=== PATIENT | female | born 1970 | race American Indian/Alaskan Native ===

== ENCOUNTER 2016-09-17 05:25 | Emergency (ER) | payer SELFPAY ==
[2016-09-17 06:47] VITALS: BP 171/111
[2016-09-17 07:13] LABS: Basophils % (Auto) 0.5 % (0.0-1.8); Eosinophils % (Auto) 1.7 % (0.0-4.3); Hematocrit 40.5 % (30.3-42.9); Hemoglobin 13.3 gm/dl (10.1-14.3); Mean Corpuscular HGB Conc 33 % (30-34); Mean Corpuscular Hemoglobin 28 pg (28-32); Mean Corpuscular Volume 84 fl (79-97); Platelet Count 279 K/mm3 (140-440); Red Blood Count 4.85 M/mm3 (3.65-5.03); Red Cell Distribution Width 14.2 % (13.2-15.2); White Blood Count 8.5 K/mm3 (4.5-11.0)
[2016-09-17 07:30] LABS: Alanine Aminotransferase 46 units/L (7-56); Alkaline Phosphatase 141 units/L (35-129); Anion Gap 19 mmol/L; Blood Urea Nitrogen 10 mg/dL (7-17); Calcium 9.2 mg/dL (8.4-10.2); Carbon Dioxide 26 mmol/L (22-30); Chloride 95.9 mmol/L (98-107); Glucose 324 mg/dL (65-100); Lipase 27 units/L (13-60); Sodium 137 mmol/L (137-145); Total Protein 8.1 g/dL (6.3-8.2)
[2016-09-17 08:09] LABS: Bacteria,Urine 2+ /HPF (Negative); Bilirubin,Urine NEG (Negative); Blood,Urine NEG (Negative); Ketones,Urine TR mg/dL (Negative); Leukocyte Esterase,Urine SM (Negative); Mucus,Urine FEW /HPF; Nitrite,Urine NEG (Negative)
[2016-09-17] MEDS ORDERED: NACL ONE (12:05)
--- NOTE | 2016-09-21 17:35 | ED Elopement Review ---
ED Pt Elopement review - Results review Lab results: Laboratory Tests 09/17/16 09/17/16 09/17/16 06:57 06:57 07:04 WBC 8.5 RBC 4.85 Hgb 13.3 Hct 40.5 MCV 84 MCH 28 MCHC 33 RDW 14.2 Plt Count 279 Lymph % (Auto) 29.5 [place] % (Auto) 7.2 Eos % (Auto) 1.7 Baso % (Auto) 0.5 Lymph # 2.5 [place] # 0.6 Eos # 0.1 Baso # 0.0 Seg Neutrophils % 61.1 Seg Neutrophils # 5.2 Sodium 137 Potassium 4.0 Chloride 95.9 L Carbon Dioxide 26 Anion Gap 19 BUN 10 Creatinine 0.5 L Estimated GFR > 60 BUN/Creatinine Ratio 20.00 Glucose 324 H Calcium 9.2 Total Bilirubin 0.40 AST 52 H ALT 46 Alkaline Phosphatase 141 H Ammonia 37.0 Total Protein 8.1 Albumin 4.0 Albumin/Globulin Ratio 1.0 Lipase 27 Urine Color Urine Turbidity Urine pH Ur Specific [place] Urine Protein Urine Glucose (UA) Urine Ketones Urine Blood Urine Nitrite Urine Bilirubin Urine Urobilinogen Ur Leukocyte Esterase Urine WBC (Auto) Urine RBC (Auto) U Epithel Cells (Auto) Urine Bacteria (Auto) Urine Mucus 09/17/16 07:28 WBC RBC Hgb Hct MCV MCH MCHC RDW Plt Count Lymph % (Auto) [place] % (Auto) Eos % (Auto) Baso % (Auto) Lymph # [place] # Eos # Baso # Seg Neutrophils % Seg Neutrophils # Sodium Potassium Chloride Carbon Dioxide Anion Gap BUN Creatinine Estimated GFR BUN/Creatinine Ratio Glucose Calcium Total Bilirubin AST ALT Alkaline Phosphatase Ammonia Total Protein Albumin Albumin/Globulin Ratio Lipase Urine Color Yellow Urine Turbidity Slightly-cloudy Urine pH 5.0 Ur Specific [place] 1.025 Urine Protein 100 mg/dl Urine Glucose (UA) >=500 Urine Ketones Tr Urine Blood Neg Urine Nitrite Neg Urine Bilirubin Neg Urine Urobilinogen 2.0 Ur Leukocyte Esterase Sm Urine WBC (Auto) 60.0 H Urine RBC (Auto) 4.0 U Epithel Cells (Auto) 13.0 Urine Bacteria (Auto) 2+ Urine Mucus Few - Call Back decision Pt Call Back Decision: Call pt to return to ED [facility]
== END 2016-09-17 07:15 | disposition left against medical advice (07) ==
LOC: ED 05:25
DX: R10.9 Unspecified abdominal pain (principal); Z53.21 Procedure and treatment not carried out due to patient leaving prior to being seen by health care provider
CPT/HCPCS: 36415; 80053; 81001; 82140; 83690; 85025

== ENCOUNTER 2016-09-25 11:49 | Emergency (ER) | payer SELFPAY ==
--- NOTE | 2016-09-25 12:04 | Emergency Department Report ---
Chief Complaint: Abdominal Pain Stated Complaint: ABD/BACK PAIN/HEADACHE Time Seen by Provider: 09/25/16 11:59 - HPI History of Present Illness: Pt c/o L foot pain x 3 days, onset when walking PT states she is having lower abd pain - hx of hysterectomy, tummy tuck and MRSA PT states she is also having headaches pt reports her bg has been elevated - in the 300s - ROS Review of Systems: + isaac + abd pain + n/v - Exam Vital Signs: Vital Signs 09/25/16 11:54 Temperature 98.1 F Pulse Rate 119 H Respiratory 20 Rate Blood Pressure 150/91 O2 Sat by Pulse 98 Oximetry Physical Exam: PT is obese Non toxic ambulatory gcs 15 MSE screening note: Focused history and physical exam performed. Due to findings the following was ordered: labs, xr ED Disposition for MSE Condition: Stable Instructions: Abdominal Pain (ED)
[2016-09-25 12:37] LABS: Basophils % (Auto) 0.3 % (0.0-1.8); Eosinophils % (Auto) 0.9 % (0.0-4.3); Hematocrit 40.9 % (30.3-42.9); Hemoglobin 13.3 gm/dl (10.1-14.3); Mean Corpuscular HGB Conc 33 % (30-34); Mean Corpuscular Hemoglobin 28 pg (28-32); Mean Corpuscular Volume 85 fl (79-97); Platelet Count 265 K/mm3 (140-440); Red Cell Distribution Width 13.7 % (13.2-15.2)
[2016-09-25 12:58] LABS: Alanine Aminotransferase 32 units/L (7-56); Albumin 3.9 g/dL (3.9-5); Alkaline Phosphatase 130 units/L (35-129); Anion Gap 21 mmol/L; BUN/Creatinine Ratio 16.66; Blood Urea Nitrogen 10 mg/dL (7-17); Calcium 9.1 mg/dL (8.4-10.2); Carbon Dioxide 25 mmol/L (22-30); Chloride 96.1 mmol/L (98-107); Glucose 370 mg/dL (65-100); Lipase 39 units/L (13-60); Potassium 3.6 mmol/L (3.6-5.0); Sodium 138 mmol/L (137-145); Total Protein 7.7 g/dL (6.3-8.2)
--- NOTE | 2016-09-25 12:59 | XRay Report ---
LEFT FOOT, 3 views: History: Pain. The bony architecture is intact. Bony alignment is normal. No soft tissue abnormalities are seen. The joint spaces appear preserved. Small plantar spur is noted. Small accessory navicular bone measures 5 mm. IMPRESSION: No acute process. Small plantar spur.
[2016-09-25 13:31] LABS: Bacteria,Urine 1+ /HPF (Negative); Bilirubin,Urine NEG (Negative); Blood,Urine NEG (Negative); Ketones,Urine NEG (Negative); Leukocyte Esterase,Urine TR (Negative); Mucus,Urine 2+ /HPF; Nitrite,Urine NEG (Negative); Urobilinogen,Urine < 2.0 mg/dL (<2.0)
[2016-09-25] MEDS ORDERED: ZOFRAN IV ONE (15:17)
[2016-09-25] MEDS ORDERED: DILAUDID IV ONE ×2 (15:17→18:41)
[2016-09-25] MEDS ORDERED: NACL 0.9% 1000 ML 1,000 ML IV ONE (15:17)
--- NOTE | 2016-09-25 15:20 | Emergency Department Report ---
<KWAN CLEMENT - Last Filed: 09/25/16 15:19> ED Abdominal Pain HPI - General Chief Complaint: Abdominal Pain Stated Complaint: ABD/BACK PAIN/HEADACHE Time Seen by Provider: 09/25/16 11:59 Source: patient Mode of arrival: Ambulatory Limitations: No Limitations - History of Present Illness MD Complaint: abdominal pain -: Gradual Location: diffuse Radiation: none Severity: mild Severity scale (0 -10): 3 Quality: cramping, aching Consistency: intermittent Improves With: nothing Worsens With: nothing Associated Symptoms: nausea, vomiting. denies: diarrhea, chills, constipation, dysuria, hematemesis, hematochezia, melena, hematuria, anorexia, syncope - Related Data Previous Rx's Medication Instructions Recorded Last Taken Type Ciprofloxacin HCl [Ciprofloxacin 500 mg PO Q12HR 3 Days 09/25/16 Unknown Rx TAB] HYDROcodone/APAP 5-325 [[place] 1 each PO Q6HR PRN #10 tablet 09/25/16 Unknown Rx 5-325 mg TAB] Lisinopril [Zestril TAB] 40 mg PO QDAY #30 tablet 09/25/16 Unknown Rx Promethazine [Phenergan TAB] 25 mg PO Q8HR PRN #20 tab 09/25/16 Unknown Rx Allergies Allergy/AdvReac Type Severity Reaction Status Date / Time meperidine HCl [From Demerol] Allergy Itching Verified 09/17/16 06:23 morphine Allergy Itching Verified 09/17/16 06:23 ED Review of Systems ROS: Stated complaint: ABD/BACK PAIN/HEADACHE Other details as noted in HPI Comment: All other systems reviewed and negative ED Past Medical Hx - Past Medical History Hx Hypertension: Yes Hx Diabetes: Yes Hx Liver Disease: Yes (cirrhosis) Hx Kidney Stones: Yes Additional medical history: Neuropathy - Surgical History Additional Surgical History: x 4, partial hysterectomy, Mulitple Lithoptripsies, tummy tuck, abdominal abcess after tummy tuck, Hernia surgery - Social History Smoking Status: Never Smoker Substance Use Type: None - Medications Home Medications: Home Medications Medication Instructions Recorded Confirmed Last Taken Type Ciprofloxacin HCl [Ciprofloxacin 500 mg PO Q12HR 3 Days 09/25/16 Unknown Rx TAB] HYDROcodone/APAP 5-325 [[place] 1 each PO Q6HR PRN #10 tablet 09/25/16 Unknown Rx 5-325 mg TAB] Lisinopril [Zestril TAB] 40 mg PO QDAY #30 tablet 09/25/16 Unknown Rx Promethazine [Phenergan TAB] 25 mg PO Q8HR PRN #20 tab 09/25/16 Unknown Rx ED Physical Exam - General Limitations: No Limitations General appearance: alert, in no apparent distress - Head Head exam: Present: atraumatic, normocephalic - Eye Eye exam: Present: normal appearance, PERRL, EOMI - ENT ENT exam: Present: normal exam, normal orophraynx, mucous membranes moist - Neck Neck exam: Present: normal inspection - Respiratory Respiratory exam: Present: normal lung sounds bilaterally. Absent: respiratory distress, wheezes, rales, rhonchi, stridor - Cardiovascular Cardiovascular Exam: Present: regular rate, normal rhythm. Absent: systolic murmur, diastolic murmur, rubs, gallop - GI/Abdominal GI/Abdominal exam: Present: soft, tenderness, normal bowel sounds. Absent: distended, guarding, rebound, rigid, mass, bruit, pulsatile mass - Extremities Exam Extremities exam: Present: normal inspection, full ROM - Back Exam Back exam: Present: normal inspection - Neurological Exam Neurological exam: Present: alert, oriented X3, CN II-XII intact, normal gait - Psychiatric Psychiatric exam: Present: normal affect, normal mood - Skin Skin exam: Present: warm, dry, intact, normal color. Absent: rash ED Course Vital Signs 09/25/16 09/25/16 09/25/16 11:54 16:08 16:38 Temperature 98.1 F Pulse Rate 119 H Respiratory 20 18 18 Rate Blood Pressure 150/91 Blood Pressure [Left] O2 Sat by Pulse 98 Oximetry 09/25/16 09/25/16 18:38 18:58 Temperature Pulse Rate 97 H Respiratory 18 20 Rate Blood Pressure Blood Pressure 171/112 [Left] O2 Sat by Pulse 98 Oximetry ED Medical Decision Making - Lab Data Result diagrams: 09/25/16 12:07 09/25/16 12:07 Critical care attestation.: If time is entered above; I have spent that time in minutes in the direct care of this critically ill patient, excluding procedure time. ED Disposition Clinical Impression: Abdominal pain, UTI (urinary tract infection) Disposition: DC- TO HOME OR SELFCARE Condition: Stable Instructions: Abdominal Pain (ED) Prescriptions: Ciprofloxacin HCl [Ciprofloxacin TAB] 500 mg PO Q12HR 3 Days HYDROcodone/APAP 5-325 [Hamilton 5-325 mg TAB] 1 each PO Q6HR PRN #10 tablet PRN Reason: Pain Lisinopril [Zestril TAB] 40 mg PO QDAY #30 tablet Promethazine [Phenergan TAB] 25 mg PO Q8HR PRN #20 tab PRN Reason: Nausea Referrals: PRIMARY CARE, [Primary Care Provider] - 3-5 Days <RADAMES DAUGHERTY - Last Filed: 09/25/16 19:17> ED Medical Decision Making - Lab Data Result diagrams: 09/25/16 12:07 09/25/16 12:07 Laboratory Results - last 24 hr 09/25/16 09/25/16 09/25/16 12:02 12:07 12:07 WBC 7.0 RBC 4.80 Hgb 13.3 Hct 40.9 MCV 85 MCH 28 MCHC 33 RDW 13.7 Plt Count 265 Lymph % (Auto) 33.6 [place] % (Auto) 7.7 H Eos % (Auto) 0.9 Baso % (Auto) 0.3 Lymph # 2.4 [place] # 0.5 Eos # 0.1 Baso # 0.0 Seg Neutrophils % 57.5 Seg Neutrophils # 4.0 VBG pH Sodium 138 Potassium 3.6 Chloride 96.1 L Carbon Dioxide 25 Anion Gap 21 BUN 10 Creatinine 0.6 L Estimated GFR > 60 BUN/Creatinine Ratio 16.66 Glucose 370 H POC Glucose 344 H Calcium 9.1 Total Bilirubin 0.40 AST 27 ALT 32 Alkaline Phosphatase 130 H Total Protein 7.7 Albumin 3.9 Albumin/Globulin Ratio 1.0 Lipase 39 HCG, Quant Urine Color Urine Turbidity Urine pH Ur Specific [place] Urine Protein Urine Glucose (UA) Urine Ketones Urine Blood Urine Nitrite Urine Bilirubin Urine Urobilinogen Ur Leukocyte Esterase Urine WBC (Auto) Urine RBC (Auto) U Epithel Cells (Auto) Urine Bacteria (Auto) Urine Mucus 09/25/16 09/25/16 09/25/16 12:07 13:07 15:34 WBC RBC Hgb Hct MCV MCH MCHC RDW Plt Count Lymph % (Auto) [place] % (Auto) Eos % (Auto) Baso % (Auto) Lymph # [place] # Eos # Baso # Seg Neutrophils % Seg Neutrophils # VBG pH 7.378 Sodium Potassium Chloride Carbon Dioxide Anion Gap BUN Creatinine Estimated GFR BUN/Creatinine Ratio Glucose POC Glucose Calcium Total Bilirubin AST ALT Alkaline Phosphatase Total Protein Albumin Albumin/Globulin Ratio Lipase 39 HCG, Quant Urine Color Yellow Urine Turbidity Clear Urine pH 5.0 Ur Specific [place] 1.022 Urine Protein 100 mg/dl Urine Glucose (UA) >=500 Urine Ketones Neg Urine Blood Neg Urine Nitrite Neg Urine Bilirubin Neg Urine Urobilinogen < 2.0 Ur Leukocyte Esterase Tr Urine WBC (Auto) 13.0 H Urine RBC (Auto) 2.0 U Epithel Cells (Auto) 32.0 H Urine Bacteria (Auto) 1+ Urine Mucus 2+ 09/25/16 15:34 WBC RBC Hgb Hct MCV MCH MCHC RDW Plt Count Lymph % (Auto) [place] % (Auto) Eos % (Auto) Baso % (Auto) Lymph # [place] # Eos # Baso # Seg Neutrophils % Seg Neutrophils # VBG pH Sodium Potassium Chloride Carbon Dioxide Anion Gap BUN Creatinine Estimated GFR BUN/Creatinine Ratio Glucose POC Glucose Calcium Total Bilirubin AST ALT Alkaline Phosphatase Total Protein Albumin Albumin/Globulin Ratio Lipase HCG, Quant < 2 Urine Color Urine Turbidity Urine pH Ur Specific [place] Urine Protein Urine Glucose (UA) Urine Ketones Urine Blood Urine Nitrite Urine Bilirubin Urine Urobilinogen Ur Leukocyte Esterase Urine WBC (Auto) Urine RBC (Auto) U Epithel Cells (Auto) Urine Bacteria (Auto) Urine Mucus - Medical Decision Making Took over care for Dr. Clement. Patient with mild suprapubic discomfort. CT ordered and followed up. She does not have any acute findings to explain her discomfort. She does not an elevated white blood cell count. Her CT findings showed a small appendicolith and some diverticulosis. Her appendix is noninflamed I reassessed her abdomen and she is not tender in her right lower quadrant. She has an Hess score of 1 making her low risk for appendicitis. I explained to her her risk for appendicitis given the findings on the CT and discussed the plan to have her take oral antibiotics for her UTI and pain medications. She will follow up or return to the emergency department should she have fever worsening nausea vomiting or worsening pain in her right lower quadrant. Portions of this chart were dictated with dictation software. There may be dictation errors contained within this note. ED Disposition Is pt being admited?: No
[2016-09-25] MEDS ORDERED: NACL ONE (17:27)
--- NOTE | 2016-09-25 18:22 | Admit Criteria Form ---
Admission Criteria Documentation: ABDOMINAL PAIN Clinical Indications for Admission to Inpatient Care (Place 'X' for any and all applicable criteria): Admission is indicated for ANY ONE of the following(1)(2)(3)(4)(5): [ X]I. Inpatient admission required rather than observation care (Also use Abdominal Pain: Observation Care, as appropriate) because of ANY ONE of the following: [ ]a) Severe pain requiring acute inpatient management [X ]b) Identification of etiology/finding that requires inpatient care (eg, aortic dissection, free air) [ ]c) Absent bowel sounds with complete ileus(6) [ ]d) Suspected toxic megacolon [ ]e) Severe electrolyte abnormalities requiring inpatient care [ ]f) High fever or infection requiring inpatient admission as indicated by ANY ONE of following(7)(8): [ ] i) Appropriate outpatient or observational care antimicrobial treatment unavailable, not effective, or not feasible [ ] ii) Documented bacteremia [ ] iii) Temperature > 104.9 degrees F (oral) [ ] iv) T >103.1 F (oral) or < 96.8 F(rectal) that does not respond to all emergency treatment measures [ ]g) Signs of intestinal obstruction [B] [ ]h) Hemodynamic instability [ ]i) IV fluid to replace significant ongoing losses (greater than 3 L/m2 per day) (12)(13) [ ]j) Percutaneous or open drainage (eg, abscess, biliary tract ) procedures [ ]k) Parenteral nutrition regimen that must be implemented on inpatient basis [ ]l) Other condition,treatment or monitoring requiring inpatient admission. [ ]II. Peritoneal signs present [ ]III. Surgery needed that cannot be performed on an ambulatory basis. [ ]IV. Evaluation requires patient to not eat or drink for extended period ( eg, more than 24 hours). [ ]V. Contraindications and/or Inappropriate clinical situations for Observational Care in patients with abdominal pain, when ANY ONE of the following is required: [ ]a) Thorough evaluation is required to prevent catastrophic events due to delays in diagnosing (e.g.Mesenteric ischemia) 1,3 [ ]b) Patient with severe pathology or with chronic symptoms unlikely to improve in the ED stay (3) [ ]. General contraindications and/or Inappropriate clinical situations for Observational Care in patients with abdominal pain, when ANY ONE of the following is required: [ ]a) Prediction of prolongation of LOS based on ANY ONE of the following may be considered as a contraindication for observational care 2, 3, 4, 5, 6, 7, 8, 9, 10, 11 [ ]i) Age > 65 yrs. [ ]ii) Patient arriving by ambulance [ ]iii) Patient with high acuity [ ]iv) Patient requiring vital sign monitoring [ ]v) Patient on IV medication [ ]b) Systolic blood pressures 180mmHg 3,12 [ ]c) Patient with altered mental status including delirium and other alteration of consciousness, (3) [ ]d) Patient whose discharge disposition will be to a senior care home or rehabilitation home should not be managed in Emergency Department Observation Unit. CMS rule requires 3 days hospital stay before such placement.3,13 [ ]e) Patient with failure to thrive due to broad array of etiologies 3,16,17 [ ]f) Inability to ambulate 3,14 Extended stay beyond goal length of stay may be needed for(2)(3): [ ]a) Persistent abdominal pain with suspected intra-abdominal process [ ]b) Diagnosed condition requiring continued stay (e.g., pancreatitis, complicated diverticulitis) [ ]c) Surgery (e.g., colectomy) The original [facility] content created by [employer] has been revised. The portions of the content which have been revised are identified through the use of italic text or in bold, and [facility] has neither reviewed nor approved the modified material.All other unmodified content is copyright [facility]. Please see references footnoted in the original [employer] [facility] edition 2016
[2016-09-25 18:39] VITALS: BP 171/112
--- NOTE | 2016-09-25 18:56 | Cat Scan Report ---
FINAL REPORT EXAM: CT ABDOMEN PELVIS W CON HISTORY: Abdominal Pain TECHNIQUE: CT examination of the ABDOMEN after IV contrast CT examination of the PELVIS after IV contrast PRIORS: None. FINDINGS: Large body habitus limits the examination. Increased soft tissue attenuates the CT x-ray beam and degrades image quality. Nonspecific diffusely decreased density of liver parenchyma may reflect fatty infiltration. No visualized focal liver lesion. There is focal fatty sparing adjacent to the gallbladder fossa. Liver slightly enlarged with sagittal dimension of 18.8 cm. Normal-appearing gallbladder, adrenals, pancreas, and spleen. Intact normal caliber abdominal aorta and IVC. Normal-appearing left kidney and ureter. 5 mm nonobstructing right renal calculus. Otherwise normal-appearing right kidney and ureter. Small lobulated fat containing umbilical hernia. Normal-appearing stomach and duodenum. No small bowel distention in the abdomen and pelvis. No pelvic free fluid. Normal-appearing urinary bladder and rectum. Uterus not visualized. No adnexal abnormality Slight descending and sigmoid diverticulosis without acute inflammation. No gross ascites, free air, or colonic distention. Normal-appearing cecum and terminal ileum. 3 mm calcification in the proximal aspect of the appendix is suggestive of appendicolith. Otherwise normal-appearing appendix. IMPRESSION: Suggestion of proximal appendicolith in otherwise normal-appearing appendix 5 mm nonobstructing right renal calculus Slight hepatomegaly with suggestion of steatosis Slight descending and sigmoid diverticulosis without acute inflammation
== END 2016-09-25 19:48 | disposition home or self-care (01) ==
LOC: ED 11:49
DX: N39.0 Urinary tract infection, site not specified (principal); I10 Essential (primary) hypertension; E11.40 Type 2 diabetes mellitus with diabetic neuropathy, unspecified; Z88.6 Allergy status to analgesic agent; Z88.8 Allergy status to other drugs, medicaments and biological substances
CPT/HCPCS: 36415; 73630; 74177; 80053; 81001; 82805; 82962; 83690; 84702; 85025; 96361; 96374; 96375; 96376; 99284; J1170; J2405; J7030; Q9967

== ENCOUNTER 2016-09-27 09:38 | Emergency (ER) | payer SELFPAY ==
[2016-09-27 10:33] LABS: Basophils % (Auto) 0.3 % (0.0-1.8); Eosinophils % (Auto) 1.2 % (0.0-4.3); Hemoglobin 13.1 gm/dl (10.1-14.3); Mean Corpuscular HGB Conc 33 % (30-34); Mean Corpuscular Hemoglobin 28 pg (28-32); Mean Corpuscular Volume 84 fl (79-97); Platelet Count 250 K/mm3 (140-440); Red Blood Count 4.75 M/mm3 (3.65-5.03); Red Cell Distribution Width 14.1 % (13.2-15.2); White Blood Count 7.1 K/mm3 (4.5-11.0)
[2016-09-27 10:56] LABS: Alanine Aminotransferase 32 units/L (7-56); Albumin 3.8 g/dL (3.9-5); Alkaline Phosphatase 127 units/L (35-129); Anion Gap 17 mmol/L; Blood Urea Nitrogen 8 mg/dL (7-17); Calcium 9.3 mg/dL (8.4-10.2); Carbon Dioxide 28 mmol/L (22-30); Chloride 97.4 mmol/L (98-107); Glucose 232 mg/dL (65-100); Lipase 31 units/L (13-60); Potassium 3.9 mmol/L (3.6-5.0); Sodium 138 mmol/L (137-145); Total Protein 7.5 g/dL (6.3-8.2)
[2016-09-27 11:15] LABS: Bacteria,Urine 1+ /HPF (Negative); Bilirubin,Urine NEG (Negative); Blood,Urine NEG (Negative); Ketones,Urine TR mg/dL (Negative); Leukocyte Esterase,Urine SM (Negative); Mucus,Urine 1+ /HPF; Nitrite,Urine NEG (Negative); Urobilinogen,Urine < 2.0 mg/dL (<2.0)
[2016-09-27] MEDS ORDERED: MORPHINE IV ONE (18:58)
[2016-09-27] MEDS ORDERED: APRESOLINE IV ONE (18:58)
[2016-09-27] MEDS ORDERED: NACL 0.9% 1000 ML 1,000 ML IV ONE ×4 (18:58→21:59)
[2016-09-27] MEDS ORDERED: ZOFRAN IV ONE (18:58)
[2016-09-27] MEDS ORDERED: BENTYL IM ONE (18:59)
--- NOTE | 2016-09-27 19:00 | Emergency Department Report ---
ED Abdominal Pain HPI - General Chief Complaint: Abdominal Pain Stated Complaint: ABD PAIN/RT SIDE PAIN/VOMITING/DIARRHEA Time Seen by Provider: 09/27/16 18:32 Source: patient, RN notes reviewed, old records reviewed Mode of arrival: Ambulatory Limitations: No Limitations - History of Present Illness Initial Comments: This is a 46-year-old female. She is previously unknown to me. She does not have a local primary care doctor. Past medical history includes obesity, diabetes, hypertension and cirrhosis. Patient reports she also has a history of renal stones, surgical history includes C-sections and abdominoplasty. Patient presents to the ER with right lower quadrant abdominal pain, nausea, vomiting, diarrhea, inability to tolerate liquid feeds. Reports a fever at home to 102. Reports multiple episodes of nonbloody, nonbilious emesis. Reports multiple episodes of watery brownish diarrhea. Patient seen in the ER a few days ago for similar symptoms, had a CT scan which demonstrated an appendicolith, and a nonobstructing right renal calculus, and she was presumptively diagnosed with a urinary tract infection. She presents because her symptoms are getting worse. The abdominal pain is achy and sharp, it is moved predominantly to the right lower quadrant and periumbilical area. Her symptoms started approximately 6 days ago. MD Complaint: abdominal pain -: Gradual Location: suprapubic Radiation: RLQ Migration to: RLQ Severity: moderate Severity scale (0 -10): 10 Quality: cramping, aching Consistency: intermittent Improves With: rest Worsens With: movement Associated Symptoms: nausea, vomiting, diarrhea, fever - Related Data Previous Rx's Medication Instructions Recorded Last Taken Type HYDROcodone/APAP 5-325 [[place] 1 each PO Q6HR PRN #10 tablet 09/25/16 Unknown Rx 5-325 mg TAB] Lisinopril [Zestril TAB] 40 mg PO QDAY #30 tablet 09/25/16 Unknown Rx Promethazine [Phenergan TAB] 25 mg PO Q8HR PRN #20 tab 09/25/16 Unknown Rx Dicyclomine [Bentyl] 10 mg PO QID PRN #20 capsule 09/27/16 Unknown Rx Fluconazole [Diflucan TAB] 150 mg PO ONCE #2 tablet 09/27/16 Unknown Rx Metoclopramide [Reglan] 10 mg PO QID PRN #30 tablet 09/27/16 Unknown Rx Promethazine [Phenergan SUPPOS] 50 mg DE Q6H PRN #15 supp.rect 09/27/16 Unknown Rx Allergies Allergy/AdvReac Type Severity Reaction Status Date / Time meperidine HCl [From Demerol] Allergy Itching Verified 09/27/16 10:10 morphine Allergy Itching Verified 09/27/16 10:10 ED Review of Systems ROS: Stated complaint: ABD PAIN/RT SIDE PAIN/VOMITING/DIARRHEA Other details as noted in HPI Constitutional: fever, malaise Eyes: denies: vision change ENT: denies: dental pain, epistaxis Respiratory: denies: cough Cardiovascular: denies: chest pain Gastrointestinal: abdominal pain, nausea, vomiting, diarrhea Genitourinary: discharge Musculoskeletal: as per HPI Skin: denies: lesions Neurological: as per HPI, weakness Psychiatric: as per HPI ED Past Medical Hx - Past Medical History Previous Medical History?: Yes Hx Hypertension: Yes Hx Diabetes: Yes Hx Liver Disease: Yes (cirrhosis) Hx Kidney Stones: Yes Additional medical history: Neuropathy - Surgical History Past Surgical History?: Yes Additional Surgical History: x 4, partial hysterectomy, Mulitple Lithoptripsies, tummy tuck, abdominal abcess after tummy tuck, Hernia surgery - Social History Smoking Status: Never Smoker Substance Use Type: None - Medications Home Medications: Home Medications Medication Instructions Recorded Confirmed Last Taken Type HYDROcodone/APAP 5-325 [[place] 1 each PO Q6HR PRN #10 tablet 09/25/16 Unknown Rx 5-325 mg TAB] Lisinopril [Zestril TAB] 40 mg PO QDAY #30 tablet 09/25/16 Unknown Rx Promethazine [Phenergan TAB] 25 mg PO Q8HR PRN #20 tab 09/25/16 Unknown Rx Dicyclomine [Bentyl] 10 mg PO QID PRN #20 capsule 09/27/16 Unknown Rx Fluconazole [Diflucan TAB] 150 mg PO ONCE #2 tablet 09/27/16 Unknown Rx Metoclopramide [Reglan] 10 mg PO QID PRN #30 tablet 09/27/16 Unknown Rx Promethazine [Phenergan SUPPOS] 50 mg DE Q6H PRN #15 supp.rect 09/27/16 Unknown Rx ED Physical Exam - General Limitations: No Limitations General appearance: alert, in no apparent distress - Head Head exam: Present: atraumatic, normocephalic - Eye Eye exam: Present: normal appearance, EOMI. Absent: nystagmus - ENT ENT exam: Present: normal exam, normal orophraynx, mucous membranes moist, normal external ear exam - Neck Neck exam: Present: normal inspection, full ROM. Absent: tenderness, meningismus - Respiratory Respiratory exam: Present: normal lung sounds bilaterally. Absent: respiratory distress, wheezes, rales, rhonchi, stridor, chest wall tenderness, accessory muscle use, decreased breath sounds, prolonged expiratory - Cardiovascular Cardiovascular Exam: Present: normal rhythm, tachycardia, normal heart sounds. Absent: systolic murmur, diastolic murmur, rubs, gallop - GI/Abdominal GI/Abdominal exam: Present: soft, tenderness, normal bowel sounds. Absent: distended, guarding, rebound, rigid, pulsatile mass - External exam: Present: normal external exam Speculum exam: Present: normal speculum exam, vaginal discharge. Absent: cervical discharge Bi-manual exam: Present: normal bi-manual exam, other (escorted by grinder set up operator gear tool Page) . Absent: cervical motion tendernes, adnexal tenderness, adnexal mass - Extremities Exam Extremities exam: Present: normal inspection, full ROM, normal capillary refill. Absent: tenderness, pedal edema, joint swelling, calf tenderness - Back Exam Back exam: Present: normal inspection, full ROM. Absent: tenderness, CVA tenderness (R), CVA tenderness (L), muscle spasm, paraspinal tenderness, vertebral tenderness - Neurological Exam Neurological exam: Present: alert, oriented X3, normal gait, other (Extraocular movements intact. Tongue midline. No facial droop. Facial sensation intact to light touch in the V1, V2, V3 distribution bilaterally. 5 and 5 strength in 4 extremities.. Sensation is intact to light touch in 4 extremities.). Absent : motor sensory deficit - Psychiatric Psychiatric exam: Present: normal affect, normal mood - Skin Skin exam: Present: warm, dry, intact, normal color. Absent: rash ED Course Vital Signs 09/27/16 09/27/16 09/27/16 10:06 17:48 17:51 Temperature 98.2 F Pulse Rate 103 H 98 H Respiratory 16 31 H Rate Blood Pressure 186/118 157/97 Blood Pressure [Right] O2 Sat by Pulse 94 98 95 Oximetry 07/06/17 07/06/17 07/06/17 17:59 18:01 18:11 Temperature Pulse Rate 98 H 97 H 101 H Respiratory 18 20 18 Rate Blood Pressure 157/97 157/97 Blood Pressure 157/97 [Right] O2 Sat by Pulse 100 97 96 Oximetry 09/27/16 09/27/16 09/27/16 18:21 18:31 18:42 Temperature Pulse Rate 102 H 95 H 101 H Respiratory 14 35 H 22 Rate Blood Pressure 157/97 157/97 204/125 Blood Pressure [Right] O2 Sat by Pulse 95 95 97 Oximetry 09/27/16 09/27/16 09/27/16 18:53 19:00 19:11 Temperature Pulse Rate 100 H 99 H 94 H Respiratory 26 H 29 H 18 Rate Blood Pressure 204/125 173/111 173/111 Blood Pressure [Right] O2 Sat by Pulse 97 97 96 Oximetry 09/27/16 09/27/16 09/27/16 19:20 19:45 19:51 Temperature Pulse Rate 105 H 90 93 H Respiratory 13 18 23 Rate Blood Pressure 173/111 184/109 184/109 Blood Pressure [Right] O2 Sat by Pulse 97 97 95 Oximetry 09/27/16 09/27/16 09/27/16 20:00 20:04 20:11 Temperature Pulse Rate 106 H 104 H 111 H Respiratory 15 26 H Rate Blood Pressure 177/102 184/109 177/102 Blood Pressure [Right] O2 Sat by Pulse 98 96 Oximetry 09/27/16 09/27/16 09/27/16 20:21 20:30 20:41 Temperature Pulse Rate 111 H 109 H 118 H Respiratory 26 H 25 H 15 Rate Blood Pressure 169/97 165/83 165/83 Blood Pressure [Right] O2 Sat by Pulse 97 96 97 Oximetry 09/27/16 09/27/16 09/27/16 20:53 21:00 21:11 Temperature Pulse Rate 112 H 105 H 113 H Respiratory 11 L 28 H 35 H Rate Blood Pressure 180/104 165/112 165/112 Blood Pressure [Right] O2 Sat by Pulse 96 96 96 Oximetry 09/27/16 09/27/16 09/27/16 21:21 21:30 21:41 Temperature Pulse Rate 113 H 111 H 119 H Respiratory 15 32 H 21 Rate Blood Pressure 178/98 180/96 180/96 Blood Pressure [Right] O2 Sat by Pulse 95 94 96 Oximetry 09/27/16 09/27/16 09/27/16 21:51 22:00 22:11 Temperature Pulse Rate 111 H 107 H 111 H Respiratory 32 H 34 H 22 Rate Blood Pressure 193/109 193/121 193/121 Blood Pressure [Right] O2 Sat by Pulse 96 96 98 Oximetry 09/27/16 09/27/16 09/27/16 22:21 22:30 22:41 Temperature Pulse Rate 109 H 108 H Respiratory 25 H 25 H Rate Blood Pressure 180/96 171/110 171/110 Blood Pressure [Right] O2 Sat by Pulse 100 97 97 Oximetry 09/27/16 09/27/16 09/27/16 22:51 23:00 23:11 Temperature Pulse Rate 107 H 109 H 110 H Respiratory 30 H 21 16 Rate Blood Pressure 193/121 166/108 166/108 Blood Pressure [Right] O2 Sat by Pulse 95 95 96 Oximetry - Reevaluation(s) Reevaluation #1: 09/27/16 22:04 Differential diagnosis: Appendicitis, colitis, diverticulitis, dehydration, gastroenteritis Assessment and plan: 46-year-old female with migratory right lower quadrant pain , reported fever at home, nausea, vomiting and diarrhea. She is somewhat tender in the right lower quadrant. I appreciated her CT scan findings from a few days ago. However given her clinical history of worsening symptoms, tenderness, reported fever, a repeat CT scan is performed, and does not demonstrate evidence of appendicitis. Her gynecologic exam is benign, therefore think pelvic inflammatory disease is unlikely. Her urinalysis is contaminated, she endorses minimal dysuria, but this is most likely secondary to her concurrent vaginitis. She's had multiple episodes of diarrhea while here in the emergency department. There are no risk factors for C. difficile, but we will send a C. difficile assay anyhow. She is somewhat tachycardic, she is given multiple rounds of IV fluids, nausea medication, pain medication. At this point in time, she is able to tolerate liquid feedings, but she is fairly tachycardic, she has received 2-1/2 L, an additional liter and a half have been ordered. Reevaluation #2: 09/27/16 22:06 Patient was also found to have hypertension/elevated blood pressure. This is a chronic issue. She was given antihypertensive medication, which somewhat decreased her blood pressure. However, given that she is most likely volume depleted, and that she has chronic hypertension, I do not wish to lower her blood pressure too aggressively, as I am concerned that it may cause an adverse event. Once the patient has been medically stabilized from the ER, she can follow up with an outpatient primary care doctor for hypertension. Reevaluation #3: 09/27/16 23:23 patient reassessed multiple times by me while in the ER. Her abdomen is now less tender. She is able to tolerate liquid feeds. Her C. difficile assay was negative. Has received 4 L of IV fluid. Minimally tachycardic at this time, but has demonstrated clinical improvement. Given that her clinical presentation is most likely consistent with gastroenteritis, given that she is able to tolerate liquid feeds at this time, I do not think she requires admission to the hospital at this time. She will be discharged with pain medication, nausea medication and Diflucan. I don't believe she requires antibiotics, and she can discontinue her ciprofloxacin, as her urinalysis is contaminated and her clinical picture does not to be consistent with urinary tract infection ED Medical Decision Making - Lab Data Result diagrams: 09/27/16 10:13 09/27/16 10:13 Vital Signs 09/27/16 09/27/16 09/27/16 10:06 17:48 17:51 Temperature 98.2 F Pulse Rate 103 H 98 H Respiratory 16 31 H Rate Blood Pressure 186/118 157/97 Blood Pressure [Right] O2 Sat by Pulse 94 98 95 Oximetry 09/27/16 09/27/16 09/27/16 17:59 18:01 18:11 Temperature Pulse Rate 98 H 97 H 101 H Respiratory 18 20 18 Rate Blood Pressure 157/97 157/97 Blood Pressure 157/97 [Right] O2 Sat by Pulse 100 97 96 Oximetry 09/27/16 09/27/16 09/27/16 18:21 18:31 18:42 Temperature Pulse Rate 102 H 95 H 101 H Respiratory 14 35 H 22 Rate Blood Pressure 157/97 157/97 204/125 Blood Pressure [Right] O2 Sat by Pulse 95 95 97 Oximetry 09/27/16 09/27/16 09/27/16 18:53 19:00 19:11 Temperature Pulse Rate 100 H 99 H 94 H Respiratory 26 H 29 H 18 Rate Blood Pressure 204/125 173/111 173/111 Blood Pressure [Right] O2 Sat by Pulse 97 97 96 Oximetry 09/27/16 09/27/16 09/27/16 19:20 19:45 19:51 Temperature Pulse Rate 105 H 90 93 H Respiratory 13 18 23 Rate Blood Pressure 173/111 184/109 184/109 Blood Pressure [Right] O2 Sat by Pulse 97 97 95 Oximetry 09/27/16 09/27/16 09/27/16 20:00 20:04 20:11 Temperature Pulse Rate 106 H 104 H 111 H Respiratory 15 26 H Rate Blood Pressure 177/102 184/109 177/102 Blood Pressure [Right] O2 Sat by Pulse 98 96 Oximetry 09/27/16 09/27/16 09/27/16 20:21 20:30 20:41 Temperature Pulse Rate 111 H 109 H 118 H Respiratory 26 H 25 H 15 Rate Blood Pressure 169/97 165/83 165/83 Blood Pressure [Right] O2 Sat by Pulse 97 96 97 Oximetry 09/27/16 09/27/16 09/27/16 20:53 21:00 21:11 Temperature Pulse Rate 112 H 105 H 113 H Respiratory 11 L 28 H 35 H Rate Blood Pressure 180/104 165/112 165/112 Blood Pressure [Right] O2 Sat by Pulse 96 96 96 Oximetry 09/27/16 09/27/16 09/27/16 21:21 21:30 21:41 Temperature Pulse Rate 113 H 111 H 119 H Respiratory 15 32 H 21 Rate Blood Pressure 178/98 180/96 180/96 Blood Pressure [Right] O2 Sat by Pulse 95 94 96 Oximetry Vital Signs 09/27/16 09/27/16 09/27/16 10:06 17:48 17:51 Temperature 98.2 F Pulse Rate 103 H 98 H Respiratory 16 31 H Rate Blood Pressure 186/118 157/97 Blood Pressure [Right] O2 Sat by Pulse 94 98 95 Oximetry 09/27/16 09/27/16 09/27/16 17:59 18:01 18:11 Temperature Pulse Rate 98 H 97 H 101 H Respiratory 18 20 18 Rate Blood Pressure 157/97 157/97 Blood Pressure 157/97 [Right] O2 Sat by Pulse 100 97 96 Oximetry 09/27/16 09/27/16 09/27/16 18:21 18:31 18:42 Temperature Pulse Rate 102 H 95 H 101 H Respiratory 14 35 H 22 Rate Blood Pressure 157/97 157/97 204/125 Blood Pressure [Right] O2 Sat by Pulse 95 95 97 Oximetry 09/27/16 09/27/16 09/27/16 18:53 19:00 19:11 Temperature Pulse Rate 100 H 99 H 94 H Respiratory 26 H 29 H 18 Rate Blood Pressure 204/125 173/111 173/111 Blood Pressure [Right] O2 Sat by Pulse 97 97 96 Oximetry 09/27/16 09/27/16 09/27/16 19:20 19:45 19:51 Temperature Pulse Rate 105 H 90 93 H Respiratory 13 18 23 Rate Blood Pressure 173/111 184/109 184/109 Blood Pressure [Right] O2 Sat by Pulse 97 97 95 Oximetry 09/27/16 09/27/16 09/27/16 20:00 20:04 20:11 Temperature Pulse Rate 106 H 104 H 111 H Respiratory 15 26 H Rate Blood Pressure 177/102 184/109 177/102 Blood Pressure [Right] O2 Sat by Pulse 98 96 Oximetry 09/27/16 09/27/16 09/27/16 20:21 20:30 20:41 Temperature Pulse Rate 111 H 109 H 118 H Respiratory 26 H 25 H 15 Rate Blood Pressure 169/97 165/83 165/83 Blood Pressure [Right] O2 Sat by Pulse 97 96 97 Oximetry 09/27/16 09/27/16 09/27/16 20:53 21:00 21:11 Temperature Pulse Rate 112 H 105 H 113 H Respiratory 11 L 28 H 35 H Rate Blood Pressure 180/104 165/112 165/112 Blood Pressure [Right] O2 Sat by Pulse 96 96 96 Oximetry 09/27/16 09/27/16 09/27/16 21:21 21:30 21:41 Temperature Pulse Rate 113 H 111 H 119 H Respiratory 15 32 H 21 Rate Blood Pressure 178/98 180/96 180/96 Blood Pressure [Right] O2 Sat by Pulse 95 94 96 Oximetry Labs 09/27/16 09/27/16 09/27/16 10:13 10:13 10:52 WBC 7.1 RBC 4.75 Hgb 13.1 Hct 40.0 MCV 84 MCH 28 MCHC 33 RDW 14.1 Plt Count 250 Lymph % (Auto) 28.0 [place] % (Auto) 7.5 H Eos % (Auto) 1.2 Baso % (Auto) 0.3 Lymph # 2.0 [place] # 0.5 Eos # 0.1 Baso # 0.0 Seg Neutrophils % 63.0 Seg Neutrophils # 4.5 Sodium 138 Potassium 3.9 Chloride 97.4 L Carbon Dioxide 28 Anion Gap 17 BUN 8 Creatinine 0.5 L Estimated GFR > 60 BUN/Creatinine Ratio 16.00 Glucose 232 H Calcium 9.3 Total Bilirubin 0.40 AST 36 ALT 32 Alkaline Phosphatase 127 Total Protein 7.5 Albumin 3.8 L Albumin/Globulin Ratio 1.0 Lipase 31 Urine Color Yellow Urine Turbidity Slightly-cloudy Urine pH 5.0 Ur Specific [place] 1.018 Urine Protein 100 mg/dl Urine Glucose (UA) 50 Urine Ketones Tr Urine Blood Neg Urine Nitrite Neg Urine Bilirubin Neg Urine Urobilinogen < 2.0 Ur Leukocyte Esterase Sm Urine WBC (Auto) 7.0 H Urine RBC (Auto) 4.0 U Epithel Cells (Auto) 20.0 H Urine Bacteria (Auto) 1+ Urine Mucus 1+ - Radiology Data Radiology results: report reviewed, image reviewed CT scan of the abdomen and pelvis demonstrates no acute findings, left colon diverticulosis, normal appendix. Critical care attestation.: If time is entered above; I have spent that time in minutes in the direct care of this critically ill patient, excluding procedure time. ED Disposition Clinical Impression: Nausea & vomiting Disposition: DC-01 TO HOME OR SELFCARE Is pt being admited?: No Does the pt Need Aspirin: No Condition: Stable Instructions: Abdominal Pain (ED) Additional Instructions: Discontinue ciprofloxacin. I don't believe that you have a urinary tract infection. Take the Phenergan tablets that you have prescribed on her other visits as needed for nausea. you may take the Reglan tablets as needed for breakthrough nausea, and the Phenergan suppositories as needed for breakthrough nausea/vomiting. Most likely have a yeast infection, take the Diflucan as directed. Take the Bentyl as needed for abdominal pain. Please note that blood pressure was elevated. This should be followed up by a primary care doctor within the next month. Please note that long-term complications of hypertension/elevated blood pressure include stroke, heart attack, disability, , paralysis, loss of quality of life. Return to the ER right away with new pain, worsening pain, migration of pain, intractable nausea or vomiting, confusion, inability to tolerate liquid feeds, new, worsening or different symptoms. Cultures were sent today, results to be available in the next 3-5 days, have a primary care doctor contact medical records department to obtain culture results. Prescriptions: Dicyclomine [Bentyl] 10 mg PO QID PRN #20 capsule PRN Reason: Pain Fluconazole [Diflucan TAB] 150 mg PO ONCE #2 tablet Metoclopramide [Reglan] 10 mg PO QID PRN #30 tablet PRN Reason: Nausea Promethazine [Phenergan SUPPOS] 50 mg DE Q6H PRN #15 supp.rect PRN Reason: Nausea Referrals: PRIMARY CARE, [Primary Care Provider] - 3-5 Days JONNIE TABARES MD [Staff Physician] - 3-5 Days CYNTHIA MCNEIL MD [Staff Physician] - 3-5 Days
[2016-09-27] MEDS ORDERED: NACL ONE (19:16)
--- NOTE | 2016-09-27 20:33 | Cat Scan Report ---
FINAL REPORT EXAM: CT ABDOMEN PELVIS W CON HISTORY: abd pain n/v/d TECHNIQUE: Spiral CT scanning of the abdomen and pelvis after the uneventful administration of IV contrast. Multiplanar reformations. 100 mL Omnipaque IV. PRIORS: 25 September 2016. FINDINGS: Abdomen: Visualized lung bases grossly unremarkable. No radiopaque gallstones. Liver enlarged and shows decreased attenuation without focal abnormality. Spleen without significant abnormality. Pancreas without significant abnormality. A few, small calcifications again noted in the right kidney, largest measuring approximately 6 mm in the mid-lower pole. No significant hydronephrosis or abnormal perinephric fluid collection. Left kidney grossly unremarkable. Adrenal glands without significant abnormality. Pelvis: Mild diverticular change in the descending and sigmoid colon. Remainder of visualized bowel grossly unremarkable. Appendix within normal limits. No significant free peritoneal fluid or apparent adenopathy. Abdominal aorta non-aneurysmal. Small, fat-containing umbilical hernia. IMPRESSION: 1. Findings compatible with hepatomegaly and fatty infiltration in the liver. 2. Right nephrolithiasis. No significant right hydronephrosis. 3. Left colon diverticulosis.
[2016-09-27] MEDS ORDERED: REGLAN IV ONE (20:52)
[2016-09-27] MEDS ORDERED: TORADOL IV ONE (20:52)
[2016-09-27] MEDS ORDERED: PEPCID IV ONE (20:52)
[2016-09-27] MEDS ORDERED: TYLENOL PO ONE (20:52)
[2016-09-27] MEDS ORDERED: CARAFATE PO ONE (22:08)
[2016-09-27 23:45] VITALS: BP 166/108
== END 2016-09-27 23:45 | disposition home or self-care (01) ==
LOC: ED 09:38
DX: R11.2 Nausea with vomiting, unspecified (principal); I10 Essential (primary) hypertension; E11.9 Type 2 diabetes mellitus without complications; K74.60 Unspecified cirrhosis of liver; Z90.711 Acquired absence of uterus with remaining cervical stump; Z88.6 Allergy status to analgesic agent
CPT/HCPCS: 36415; 74177; 80053; 81001; 83690; 85025; 87210; 87493; 87591; 96361; 96372; 96374; 96375; 99285; J0360; J0500; J1885; J2270; J2405; J2765; J7030; Q9967